=== PATIENT | female | born 1965 | race Caucasian/White ===

== ENCOUNTER 2019-06-21 00:18 | Day surgery (SDC) | payer BC, SELFPAY ==
[2019-06-20 13:53] VITALS: BMI 37.4
[2019-06-21] MEDS: LACTATED RINGERS 1,000 ML 150 ML IV CONT (12:46)
[2019-06-21 12:48] VITALS: BP 128/80; PULSE 68; RESP 16; TEMP 36.4; O2SAT 98; BMI 37.3
--- NOTE | 2019-06-21 13:11 | WPDANESEPPF ---
Anes - Initial Pre Proc Eval Procedure: Operation Date: 06/21/19 13:00 Proposed Procedures p Screening Colonoscopy - Deyvi Dunn MD Date/Time: 06/21/19 13:11 Surgeon: Deyvi Dunn MD Pre Op Diagnosis: Neoplasm Screening Patient Data Age: 53 Gender: F Height: 5 ft 5 in Weight: 101.9 kg Last Vital Signs Temp 97.6 F 06/21/19 12:48 Pulse 68 06/21/19 12:48 Resp 16 06/21/19 12:48 BP 128/80 06/21/19 12:48 Pulse Ox 98 06/21/19 12:48 Allergies Allergy/AdvReac Type Severity Reaction Status Date / Time No Known Allergies Allergy Unverified 06/21/19 12:47 Home Medications Medication Instructions Recorded Confirmed Type B-complex with vitamin C 1 tablet PO DAILY 03/30/19 06/20/19 History ascorbate calcium (vitamin C) 500 500 mg PO DAILY 03/30/19 06/20/19 History mg tablet carboxymethylcellulose sodium 0.5 1 drop EACH EYE BID 03/30/19 06/20/19 History % eye drops cholecalciferol (vitamin D3) 25 1,000 unit PO DAILY 03/30/19 06/20/19 History mcg (1,000 unit) capsule fish, borage, flaxseed oils-omega 1 cap PO DAILY 03/30/19 06/20/19 History 3,6,9 cb #1 400 mg-400 mg-400 mg cap meloxicam 15 mg tablet 15 mg PO DAILY 03/30/19 06/20/19 History solifenacin 10 mg tablet 10 mg PO DAILY #30 tablet 03/30/19 06/20/19 Rx turmeric root extract 500 mg 500 mg PO DAILY 03/30/19 06/21/19 History capsule fluoxetine 20 mg capsule 20 mg PO DAILY #30 cap 05/11/19 06/20/19 Rx Patient hx anesthesia problems: none Family hx anesthesia problems: none PMFSH Past Medical History Medical History (Updated 06/21/19 @ 13:10 by Dwight Berrios MD) Cataract H/O bronchitis MDD (major depressive disorder), recurrent episode, moderate Surgical History Surgical History (Updated 03/31/19 @ 21:09 by Day Lopez MD) Hx of cataract surgery Family History Family History (Updated 09/15/17 @ 10:00 by DOCTOR UNKNOWN) Father Family history of cataracts Family history of hypothyroidism Family history of thyroid disease Patient's father is in good health Family history of malignant neoplasm Mother Family history of cataracts Family history of chronic obstructive pulmonary disease Diabetes mellitus Family history of arthritis Family history of Alzheimer's disease Family history of diabetes mellitus in first degree relative Sibling Family history of hypothyroidism Patient's brother is in good health Social History Social History (Updated 03/30/19 @ 08:50 by Chetna Fernando) Smoking status: Never smoker Second hand tobacco smoke exposure: No Alcohol intake: current Drinks per week: 20 Substance use: never Substance use type: does not use Gender identity (if verbalized by the patient): Female Anes - Eval Final PreProcedure Day of Procedure 06/21/19 13:11 Patient weight: obese Heart: regular rate and rhythm Lungs: clear to auscultation Airway: Mallampati scale class II Neurological: alert and oriented Last oral intake: >/= 8 hours ASA classification: II Emergent: no Anesthetic plan: proceed Anesthesia type and monitoring: general GIVS and standard monitoring Informed Consent: The patient's anesthetic plan and its attendant risks and benefits were discussed with the patient/family/POA. Questions were solicited and answers provided to the satisfaction of the patient/family/POA.
--- NOTE | 2019-06-21 13:44 | PM.HPGS ---
History of Present Illness History of Present Illness Consent: Risks, benefits, and alternatives have been discussed and questions answered. Patient agrees to proceed with procedure. Chief complaint: Neoplasm Screening Narrative: Steffanie Theodore is a 53 year old female here for screening colonoscopy, never had one. Review of Systems Constitutional: Constitutional: Denies headache(s) and Denies weakness Eyes: Eyes: Denies blurry vision ENT: Reports Normal hearing present, Denies headache(s) and Denies neck pain Cardiovascular: Cardiovascular: Denies chest pain and Denies dyspnea Respiratory: Respiratory: Denies dyspnea Gastrointestinal: Gastrointestinal: Reports no additional gastrointestinal complaints Genitourinary: Genitourinary: Denies dysuria Musculoskeletal: Musculoskeletal: Denies neck pain Integumentary/Breasts: Skin/Breast: Denies dry skin Neurologic: Reports Normal hearing present, Denies headache(s) and Denies weakness Psychiatric: Psychiatric: Denies anxiety Endocrine: Endocrine: Denies change in body appearance Hematologic/Lymphatic: Hematologic/Lymphatic: Denies easy bleeding Allergic/Immunologic: Allergic/Immunologic: Denies urticaria PMFSH Past Medical History Medical History (Updated 06/21/19 @ 13:45 by Deyvi Dunn MD) Cataract Colon cancer screening H/O bronchitis MDD (major depressive disorder), recurrent episode, moderate Surgical History Surgical History (Updated 03/31/19 @ 21:09 by Day Lopez MD) Hx of cataract surgery Family History Family History (Updated 09/15/17 @ 10:00 by DOCTOR UNKNOWN) Father Family history of cataracts Family history of hypothyroidism Family history of thyroid disease Patient's father is in good health Family history of malignant neoplasm Mother Family history of cataracts Family history of chronic obstructive pulmonary disease Diabetes mellitus Family history of arthritis Family history of Alzheimer's disease Family history of diabetes mellitus in first degree relative Sibling Family history of hypothyroidism Patient's brother is in good health Social History Social History (Updated 03/30/19 @ 08:50 by Chetna Fernando) Smoking status: Never smoker Second hand tobacco smoke exposure: No Alcohol intake: current Drinks per week: 20 Substance use: never Substance use type: does not use Gender identity (if verbalized by the patient): Female Meds Home Medications and Allergies Home Medications Medication Instructions Recorded Confirmed Type B-complex with vitamin C 1 tablet PO DAILY 03/30/19 06/20/19 History ascorbate calcium (vitamin C) 500 500 mg PO DAILY 03/30/19 06/20/19 History mg tablet carboxymethylcellulose sodium 0.5 1 drop EACH EYE BID 03/30/19 06/20/19 History % eye drops cholecalciferol (vitamin D3) 25 1,000 unit PO DAILY 03/30/19 06/20/19 History mcg (1,000 unit) capsule fish, borage, flaxseed oils-omega 1 cap PO DAILY 03/30/19 06/20/19 History 3,6,9 cb #1 400 mg-400 mg-400 mg cap meloxicam 15 mg tablet 15 mg PO DAILY 03/30/19 06/20/19 History solifenacin 10 mg tablet 10 mg PO DAILY #30 tablet 03/30/19 06/20/19 Rx turmeric root extract 500 mg 500 mg PO DAILY 03/30/19 06/21/19 History capsule fluoxetine 20 mg capsule 20 mg PO DAILY #30 cap 05/11/19 06/20/19 Rx Allergies Allergy/AdvReac Type Severity Reaction Status Date / Time No Known Allergies Allergy Unverified 06/21/19 12:47 Vital Signs Vital Signs - 24 hr 06/21/19 12:48 Temperature 97.6 F Pulse Rate 68 Respiratory Rate 16 Blood Pressure 128/80 Pulse Oximetry 98 Exam Const: General: comfortable and no acute distress HENMT: General nose exam: Normal nares present Eyes: General: appearance normal, both eyes and all related structures Neck: Neck: no JVD Resp: Auscultation: clear to auscultation bilaterally Cardio: Rate: regular rate Rhythm: regular r
[2019-06-21 14:07] VITALS: BP 109/69; PULSE 62; RESP 21; O2SAT 96
[2019-06-21 14:17] VITALS: BP 108/69; PULSE 61; RESP 19; O2SAT 97
[2019-06-21 14:27] VITALS: BP 110/78; PULSE 69; RESP 22; O2SAT 98
== END 2019-06-21 14:33 | disposition home or self-care (01) ==
PROVIDERS: PCP Family Medicine; Visit Provider Internal Medicine Gastroenterology
PROC: 0DJD8ZZ Inspection of Lower Intestinal Tract, Via Natural or Artificial Opening Endoscopic (ICD-10-PCS; CPT 45378; principal; 2019-06-21 13:00)
DX: Z12.11 Encounter for screening for malignant neoplasm of colon (principal); K57.30 Diverticulosis of large intestine without perforation or abscess without bleeding; K64.8 Other hemorrhoids; F33.1 Major depressive disorder, recurrent, moderate; E66.9 Obesity, unspecified; Z68.37 Body mass index [BMI] 37.0-37.9, adult
CPT/HCPCS: 45378; J2704; J7120

== ENCOUNTER 2019-09-04 10:24 | Outpatient (CLI) | payer BC, SELFPAY ==
--- NOTE | ~2019-09-04 | MM_ITS ---
EXAMINATION: MM screening [facility] BI w jerad HISTORY: Screening mammogram TECHNIQUE: Craniocaudal and mediolateral oblique 3-D tomosynthesis images were obtained and synthetic 2-D images were generated. CAD analysis was submitted and interpreted. COMPARISON: 10/11/2017 BREAST PARENCHYMAL COMPOSITION: There are scattered areas of fibroglandular density. FINDINGS: There is no evidence of suspicious mass, calcification, or architectural distortion to sugg est malignancy in either breast. There has been no suspicious interval change. IMPRESSION: 1. No mammographic evidence of malignancy. 2. Recommend routine screening mammography in one year. BI-RADS Category 1: Negative Reviewed, dictated and finalized at location A.
== END 2019-09-04 10:25 | disposition home or self-care (01) ==
PROVIDERS: PCP Family Medicine; Visit Provider Family Medicine
DX: Z12.31 Encounter for screening mammogram for malignant neoplasm of breast (principal)
CPT/HCPCS: 77063; 77067

== ENCOUNTER 2020-01-17 06:48 | Outpatient (NON) | payer BC, SELFPAY ==
[2020-01-17 16:42] LABS: SARS-CoV-2 RNA PCR Positive
== END 2020-01-17 06:49 ==
PROVIDERS: PCP Family Medicine; Visit Provider Physician Assistant
DX: U07.1 COVID-19 (principal)
CPT/HCPCS: 87635; C9803; U0003

== ENCOUNTER 2020-05-06 12:28 | Outpatient (CLI) | payer BC, SELFPAY ==
--- NOTE | ~2020-05-06 | MR_ITS ---
EXAMINATION: MR knee RT wo con DATE: 05/06/2020 13:52 INDICATION: Posttraumatic medial right knee pain TECHNIQUE: Magnetic resonance imaging (MRI) of the right knee was performed without intravenous contr ast. Sequences included coronal PD-weighted FSE, coronal PD-weighted FS FSE, sagittal T2-weighted FS E, sagittal PD-weighted FS FSE and axial PD weighted fat saturated FSE. COMPARISON: None. FINDINGS: Medial compartment: Medial meniscus is normal. Partial-thickness cartilage loss with smooth chondral surface along the ce ntral weightbearing medial femoral condyle. Lateral compartment: Lateral meniscus is normal. Partial-thickness cartilage loss with smooth chondral surface along the l ateral aspect of the posterior weightbearing lateral femoral condyle. Patellofemoral compartment: Partial-thickness chondral fissuring which appears to involve less than 50% the cartilage thickness a t the medial patellar facet. Partial-thickness cartilage loss and deep chondral fissuring at the late ral patellar facet with small region of mild subarticular edema present in the medial side of the lat eral facet. Trochlear cartilage is normal. Ligaments and tendons: Anterior and posterior cruciate ligaments are normal. The fibular collateral ligament complex is norm al. There is mild thickening without increased signal of the proximal medial collateral ligament whic h is also without surrounding increased fluid signal to suggest acute injury, likely mild scarring re lated to a chronic sprain. The extensor mechanism is normal. The visualized medial and lateral hamstr ing tendons as well as the iliotibial band are normal. Fluid: Physiologic amount of fluid in the joint space. No loose osteochondral bodies identified. Osseous/other: Siphon the mild subarticular edema at the patella there is normal marrow signal throughout. No fractu re or pathologic marrow replacing process. Mild edema at the superficial suprapatellar fat pad which can be seen with fat pad impingement syndrome. IMPRESSION: 1. 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 2. Likely mild scarring related to chronic sprain of the proximal medial collateral ligament. No asso ciated soft tissue edema to suggest acute injury. 3. Mild edema in the superficial suprapatellar fat pad which can be seen with fat pad impingement syn drome. Reviewed, dictated and finalized at location A. 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 Minimal to mild patellar compartment predominant tricompartmental osteoarthr itis with moderate to high-grade patellar chondromalacia. 2. Likely mild scarring related to chronic sprain of the proximal medial collat eral ligament. No associated soft tissue edema to suggest acute injury. 3. Mild edema in the superficial suprapatellar fat pad which can be seen with f at pad impingement syndrome.
== END 2020-05-06 12:29 | disposition home or self-care (01) ==
LOC: ANHIMG 12:33
PROVIDERS: PCP Family Medicine; Visit Provider Orthopaedic Surgery
DX: M25.561 Pain in right knee (principal); R60.0 Localized edema
CPT/HCPCS: 73721

== ENCOUNTER 2020-11-05 15:54 | Outpatient (CLI) | payer BC, SELFPAY ==
--- NOTE | ~2020-11-05 | MM_ITS ---
EXAMINATION: MM screening [facility] BI w jerad HISTORY: Screening TECHNIQUE: Craniocaudal and mediolateral oblique 3-D tomosynthesis images were obtained and synthetic 2-D images were generated. CAD analysis was submitted and interpreted. COMPARISON: Comparison to multiple prior studies sequentially, with oldest reviewed study dated 09/2017. BREAST PARENCHYMAL COMPOSITION: There are scattered areas of fibroglandular density. FINDINGS: There is no evidence of suspicious mass, calcification, or architectural distortion to sugg est malignancy in either breast. There has been no suspicious interval change. IMPRESSION: 1. No mammographic evidence of malignancy. 2. Recommend routine screening mammography in one year. BI-RADS Category 1: Negative Reviewed, dictated and finalized at location A.
== END 2020-11-05 15:55 | disposition home or self-care (01) ==
LOC: ANHIMG 15:56
PROVIDERS: PCP Family Medicine; Visit Provider Physician Assistant
DX: Z12.31 Encounter for screening mammogram for malignant neoplasm of breast (principal)
CPT/HCPCS: 77063; 77067

== ENCOUNTER 2022-11-24 10:13 | Outpatient (CLI) | payer OTHER, SELFPAY ==
--- NOTE | ~2022-11-24 | MM_ITS ---
EXAMINATION: MM screening [facility] BI w jerad HISTORY: Screening TECHNIQUE: Craniocaudal and mediolateral oblique 3-D tomosynthesis images were obtained and synthetic 2-D images were generated. CAD analysis was submitted and interpreted. COMPARISON: Comparison to multiple prior studies sequentially, with oldest reviewed study dated 09/2017. BREAST PARENCHYMAL COMPOSITION: There are scattered areas of fibroglandular density. FINDINGS: There is no evidence of suspicious mass, calcification, or architectural distortion to sugg est malignancy in either breast. There has been no suspicious interval change. IMPRESSION: 1. No mammographic evidence of malignancy. 2. Recommend routine screening mammography in one year. BI-RADS Category 1: Negative Reviewed, dictated and finalized at location A.
== END 2022-11-24 10:14 | disposition home or self-care (01) ==
LOC: ANHIMG 10:14
PROVIDERS: PCP Family Medicine; Visit Provider Family Medicine
DX: Z12.31 Encounter for screening mammogram for malignant neoplasm of breast (principal)
CPT/HCPCS: 77063; 77067

== ENCOUNTER 2023-01-07 16:03 | Outpatient (CLI) | payer OTHER, SELFPAY ==
--- NOTE | ~2023-01-07 | XR_ITS ---
EXAMINATION: XR shoulder RT min 2V DATE: 01/07/2023 16:19 INDICATION: Right shoulder crepitus. TECHNIQUE: 4 views of right shoulder were obtained. COMPARISON: None. FINDINGS: Bone alignment is normal. No fracture. There is mild osteoarthritis of glenohumeral joint a nd acromioclavicular joint. There is mild calcific tendinitis of the rotator cuff. IMPRESSION: 1. Mild polyarticular osteoarthritis. 2. Mild calcific tendinitis of the rotator cuff. Reviewed, dictated and finalized at location E.
== END 2023-01-07 16:04 | disposition home or self-care (01) ==
LOC: ANHIMG 16:07
PROVIDERS: PCP Family Medicine; Visit Provider Physician Assistant
DX: M19.011 Primary osteoarthritis, right shoulder (principal); M75.31 Calcific tendinitis of right shoulder
CPT/HCPCS: 73030

== ENCOUNTER 2023-07-13 12:26 | Outpatient (CLI) | payer OTHER, SELFPAY ==
--- NOTE | ~2023-07-13 | XR_ITS ---
Clinical Indication: Dyspnea PA and lateral views of the chest: Comparison: None Findings: The lungs are clear, without evidence of focal consolidation or pleural effusion. Cardiome diastinal silhouette is within normal limits. Bones and soft tissues are unremarkable. Impression: Normal chest. Reviewed, dictated and finalized at location . 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
== END 2023-07-13 12:27 ==
PROVIDERS: PCP Physician Assistant; Visit Provider Physician Assistant
DX: R06.00 Dyspnea, unspecified (principal)
CPT/HCPCS: 71046

== ENCOUNTER 2023-07-20 13:47 | Outpatient (CLI) | payer OTHER, SELFPAY ==
--- NOTE | 2023-08-01 19:29 | WPDPFTINT ---
PFT Procedure Performed PFT Procedure Performed Plethysmography (Lung Vol) Diffusing Cap (DLCO) Flow Vol Loop Spirometry w/o Bronchodil PFT Interpretation DOS: 07/20/2023 REQUESTING: Marla Roman PA-C REASON FOR TESTING: Dyspnea PULMONARY FUNCTION TESTS As of August 05, 2022, the Global Lung Initiative reference equations are used in interpretation of spirometry, lung volumes and diffusing capacity. Race and ethnicity are not included as variables in the interpretation strategy. Repeatability of FEV1 spirometry maneuver is Grade A. All testing was completed with optimal patient effort and cooperation. Spirometry: FEV1 is 1.98 L, 77%, below normal. FVC is 2.6 L, 80%, normal. FEV1/FVC ratio is 76%, normal. No bronchodilator was given. Lung volumes: Total lung capacity is 3.98 L, 78%, below normal. ERV is 0.30 L, 29%, reduced. Residual volume is 1.38 L, 71%, normal. RV/TLC is 35%, normal. Airway resistance is 2.45, 135%, normal. Diffusion: DLCO is 17.6, 80%, normal. DLCO/VA is 4.43, 99%, normal. Flow volume loop: Normal IMPRESSION: This study shows normal spirometry based on a normal FVC and a normal FEV1/FVC ratio, mild restriction which may be due to the elevated body mass index and normal diffusion capacity. There are no prior studies for comparison. Ursula Weber MD
== END 2023-07-20 13:48 | disposition home or self-care (01) ==
PROVIDERS: PCP Physician Assistant; Visit Provider Physician Assistant
DX: R06.09 Other forms of dyspnea (principal)
CPT/HCPCS: 94375; 94726; 94729

== ENCOUNTER 2023-09-20 10:51 | Outpatient (CLI) | payer OTHER, SELFPAY ==
--- NOTE | ~2023-09-20 | XR_ITS ---
Lumbosacral Spine: AP, oblique, and lateral views Clinical History: Pain Findings: The normal lordotic curve is maintained. No fracture identified. There is 8 mm anterolisthe sis of L3 over L4. The intervertebral disc spaces are preserved. There are mild to moderate facet kate int degenerative changes throughout the lumbar spine. The sacroiliac joints are normally outlined. Impression: 8 mm anterolisthesis of L3 over L4. Degenerative facet arthropathy, as above. Reviewed, dictated and finalized at location M. Impression: 8 mm anterolisthesis of L3 over L4. Degenerative facet arthropathy, as above.
== END 2023-09-20 10:52 | disposition home or self-care (01) ==
LOC: ANHIMG 10:51
PROVIDERS: PCP Family Medicine; Visit Provider Family Medicine
DX: M54.50 Low back pain, unspecified (principal); M79.605 Pain in left leg
CPT/HCPCS: 72110

== ENCOUNTER 2024-06-09 14:15 | Outpatient (CLI) | payer OTHER, SELFPAY ==
--- NOTE | ~2024-06-09 | XR_ITS ---
EXAM: XR knee LT 3V DATE: 06/09/2024 14:31 HISTORY: M25.562 - Pain in left knee . COMPARISON: None available. FINDINGS: Normal mineralization. No fracture or dislocation. No lytic or blastic lesion. Mild medial and lateral joint space narrowing and tricompartmental osteophytosis. Minimal quadriceps and patella r tendon enthesopathy. No erosion or periosteal change. Soft tissues within normal limits. Small join t effusion. IMPRESSION: Mild tricompartmental left knee osteoarthritis. Reviewed, dictated and finalized at location K. 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
== END 2024-06-09 14:16 | disposition home or self-care (01) ==
PROVIDERS: PCP Family Medicine; Visit Provider Physician Assistant
DX: M17.12 Unilateral primary osteoarthritis, left knee (principal)
CPT/HCPCS: 73562

== ENCOUNTER 2024-07-09 01:39 | Day surgery (SDC) | payer OTHER, SELFPAY ==
[2024-06-27 13:31] VITALS: BMI 38.2
--- NOTE | 2024-06-27 13:39 | PC.NURSE ---
Report to the Outpatient Waiting Room, entrance under the green pavilion located off [facility], at time 0830_ on date 07/09/24__. Planned Procedure Time: _1030_.? Time changes happen often and if your time is changed the preop area will call you the afternoon before. - You and your visitor will be asked to self-screen and do not enter if you have any COVID symptoms. Please call surgeon if you need to reschedule. - A mask is optional within the hospital at this time. Patients may have clear liquids (water, carbonated beverages, clear teas, apple juice) until 3 hours prior to surgery with a maximum of 20 ounces. - No food from midnight until time of surgery and no smoking, or chewing tobacco (or any form of nicotine). No chewing gum, candy or mints. - Infants may have breast milk until 4 hours before surgery, infant formula 6 hours prior to surgery. - Children will be allowed to drink immediately following surgery.? If applicable, please bring a bottle or sippy cup to assist with drinking. Juice, water, soda, and popsicles are readily available.? For infants on formula, please bring formula the day of surgery.? Pacifiers are allowed. Take only the following medications with a SIP of water on the morning of surgery: ___FLUOXETINE, LEVOTHYROXINE DO NOT STOP ANY OF YOUR OTHER PRESCRIPTION MEDICATIONS PRIOR TO SURGERY EXCEPT THE FOLLOWING Hold all vitamins and supplements for 3 days per anesthesiologist. Medications to discontinue per physician MELOXICAM, VOLTARIN Date to take last dose____PT STOPPING 5 DAYS PRIOR TO SURGERY Please no make-up, nail trinidadian, hairspray, perfume, deodorant, or body powder the day of surgery.? No jewelry (including any body piercings) or valuables the day of surgery, leave them at home.? Please take a shower or bath the night before, or the morning of, surgery with an antibacterial soap.? Wear comfortable, loose fitting clothing.? Children are encouraged to wear pajamas. - Jewelry must be removed prior to entering the operating room.? Rings and piercings that are not removed may be cut off. - The hospital will not accept responsibility for valuables.? - Please leave all valuables, including medications, at home the day of surgery. If you are going home after surgery, a licensed bus driver must drive you home.? - NO public transportation without another adult if you receive anesthesia. - We recommend that an adult stay with you for 24 hours following discharge. - We also recommend that you do not drive, make important decision, drink alcoholic beverages, or take any drugs that were not prescribed by your health care provider for at least 24 hours after your discharge time. For Pediatric surgeries, we recommend two adults accompany the child home. Follow any additional instructions given to you from your surgeon. Telephone instructions given to PATIENT_and asked if any additional questions and then verbalized understanding. Patient advised to call surgeon office or pre surgery nurse liaison [phone] if any additional questions.
--- NOTE | 2024-07-09 07:00 | WPDHPUPDATE1 ---
History and Physical Update Update Date/Time: 07/09/24 07:00 History and Physical has been reviewed, including an updated exam of the patient. There are NO changes in the patient's condition. Risks, benefits, and alternatives have been discussed and questions answered. Patient agrees to proceed with hysteroscopy with D&C.
[2024-07-09 08:34] VITALS: BP 134/88; PULSE 72; RESP 14; TEMP 36.8; O2SAT 98
[2024-07-09] MEDS: ACETAMINOPHEN 500 MG TABLET 1000 MG PO (09:00)
[2024-07-09] MEDS: LACTATED RINGERS 1,000 ML 30 ML IV CONT (09:00)
--- NOTE | 2024-07-09 09:12 | WPDANESEPPF ---
Anes - Initial Pre Proc Eval Procedure: Operation Date: 07/09/24 10:30 Proposed Procedures p Hysteroscopy Dilation and Curettage - Sarah Paz MD Date/Time: 07/09/24 09:12 Surgeon: Sarah Paz MD Pre Op Diagnosis: Post Menopausal Bleeding Patient Data Age: 58 Gender: F Height: 1.63 m Weight: 103.7 kg Last Vital Signs Temp 36.8 C 07/09/24 08:34 Pulse 72 07/09/24 08:34 Resp 14 07/09/24 08:34 BP 134/88 07/09/24 08:34 Pulse Ox 98 07/09/24 08:34 O2 Del Method Room Air 07/09/24 08:34 Allergies Allergy/AdvReac Type Severity Reaction Status Date / Time No Known Allergies Allergy Verified 07/09/24 08:45 Home Medications ?Medication ?Instructions ?Recorded ?Confirmed ?Type antiarthritic combination no.2 900 2,900 mg PO 4XW 04/09/20 06/27/24 History mg tablet (glucosamine-chondroitin) fluoxetine 40 mg capsule See Rx Instructions .Route 04/10/24 07/09/24 Rx .COMPLEX #90 caps meloxicam 15 mg tablet 15 mg PO 2XW 06/18/24 06/27/24 History oxybutynin chloride 10 mg See Rx Instructions .Route 06/25/24 06/27/24 Rx tablet,extended release 24 hr .COMPLEX #90 tabs levothyroxine 75 mcg tablet See Rx Instructions .Route 06/26/24 07/09/24 Rx .COMPLEX #90 tabs diclofenac sodium 1 % topical gel 2 g topical ONCE 06/27/24 06/27/24 History (Arthritis Pain (diclofenac)) multivitamin (Daily Multi-Vitamin 1 tablet PO 3XW 06/27/24 06/27/24 History tablet) rosuvastatin 5 mg tablet See Rx Instructions .Route 07/09/24 Rx .COMPLEX #90 tabs Patient hx anesthesia problems: none Family hx anesthesia problems: none Results Review: All pre-operative results and documents have been reviewed as part of the pre-operative evaluation. [facility] Past Medical History Medical History BMI 36.0-36.9,adult Well woman exam with routine gynecological exam Hypothyroidism (acquired) Arthritis Depression Hypothyroidism Urinary frequency Diarrhea Constipation Coughing Shortness of breath Hoarseness Memory loss Dizziness Fever Claustrophobia Colon cancer screening H/O bronchitis Cataract MDD (major depressive disorder), recurrent episode, moderate Surgical History Surgical History History of rhinoplasty Hx of cataract surgery Bilateral Family History Family History Father Family history of cataracts Family history of hypothyroidism Family history of thyroid disease Patient's father is in good health Family history of malignant neoplasm Mother Family history of cataracts Family history of chronic obstructive pulmonary disease Diabetes mellitus Family history of arthritis Family history of Alzheimer's disease Family history of diabetes mellitus in first degree relative Sibling Family history of hypothyroidism Patient's brother is in good health Social History Social History Social History: Smoking status: Never smoker Second hand tobacco smoke exposure: No Alcohol intake: current Drinks per week: 15 Substance use: never Substance use type: does not use Other substance usage details: CBD GUMMY WEEKLY Do You Feel Safe in your Home?: Yes Lack of Transportation: No Lack of Food: Never True Current Housing: I Have Housing Concerned About Future Housing: No Difficulty Paying Gas/Electric Bills: No Difficulty Paying for Meds: No Currently Unemployed: YES Education: Don't Know Difficulty w/ Childcare or Family Care: No Living arrangements: with family Additional living arrangements comments: Pt lives with Occupation/Education: unemployed Gender identity (if verbalized by the patient): Female Sexual Orientation (if Verbalized by the Patient): Lesbian, [place], or Homosexual Anes - Eval Final PreProcedure Day of Procedure 07/09/24 09:12 Patient weight: obese Heart: regular rate and rhythm Lungs: clear to auscultation Airway: Mallampati scale class II Neurological: alert and oriented Last oral intake: >/= 8 hours ASA classification: III Emergent: no Anesthetic plan: proceed Anesthesia type and monitoring: general GIVS and standard monitoring Results Review: All pre-operative results and documents have been reviewed as part of the pre-operative evaluation. Informed Consent: The patient's anesthetic plan and its attendant risks and benefits were discussed with the patient/family/POA. Questions were solicited and answers provided to the satisfaction of the patient/family/POA.
--- NOTE | 2024-07-09 11:39 | W.PM.PROC2 ---
Procedure Note - Detailed Date of Procedure 07/09/24 Pre-op Diagnosis Post Menopausal Bleeding Post-op Diagnosis Same Procedure Performed Hysteroscopy with D&C Surgeon Sarah Paz MD Anesthesia MAC Findings Uterus sounded to 7.5cm, stenotic cervix, diffusely thickened/polypoid lining with increased vascularity, bilateral tubal ostia visualized. Good hemostasis at end of case. Fluid deficit: 70cc Description of Procedure Steffanie was taken to the operating room where she was placed under sedation without complications. She was then prepped and draped in the usual sterile fashion in the dorsal lithotomy position with her legs in low Omari stirrups. A time-out was performed and no perioperative antibiotics were indicated. A bivalve speculum was placed within the vagina where the cervix was easily identified. The anterior lip of the cervix was grasped with a single-tooth tenaculum. The cervix was then serially dilated to allow for the hysteroscope. The hysteroscope was advanced into the uterine cavity with the above findings noted. A curettage was then performed until a good uterine cry was felt throughout the uterus. The hysteroscope was once again advanced into the uterus and the cavity appeared normal. Good hemostasis was noted. All instruments were removed from the vagina. Sponge, lap, instrument, and needle counts were correct at the end of the procedure. Patient was awoken from anesthesia and taken to recovery with plans of same-day discharge home . Estimated Blood Loss 10 IV Fluids 700 Drains No Packing No Pathology Yes (endometrial curettings) Complications No immediate complications Condition Stable Disposition Same day [facility] Billing Surgery - Charge Forward: Surgery Billing
[2024-07-09 11:42] VITALS: BP 107/58; PULSE 61; RESP 14; O2SAT 96
[2024-07-09 12:12] VITALS: BP 119/77; PULSE 63
== END 2024-07-09 12:36 | disposition home or self-care (01) ==
PROVIDERS: PCP Family Medicine; Visit Provider Obstetrics & Gynecology
PROC: 0U5B8ZZ Destruction of Endometrium, Via Natural or Artificial Opening Endoscopic (ICD-10-PCS; CPT 58563; principal; 2024-07-09 10:30)
DX: C54.1 Malignant neoplasm of endometrium (principal); N95.0 Postmenopausal bleeding; E66.9 Obesity, unspecified; Z68.39 Body mass index [BMI] 39.0-39.9, adult
CPT/HCPCS: 58558; 88305; 88342; A9270; J2704; J3010; J7120